=== PATIENT | female | born 1990 | race Caucasian/White ===

== ENCOUNTER 2017-06-07 01:56 | Emergency (ER) | payer OTHER, MEDICAID | END 2017-06-07 05:19 | disposition home or self-care (01) | LOC: FTE 01:56 | DX: S93.401A Sprain of unspecified ligament of right ankle, initial encounter (principal); F17.210 Nicotine dependence, cigarettes, uncomplicated; X58.XXXA Exposure to other specified factors, initial encounter; Y92.9 Unspecified place or not applicable | CPT/HCPCS: 73610; 73610-RT; 99283-25 ==